=== PATIENT | female | born 2000 | race Two or more races ===

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

== ENCOUNTER 2023-01-11 12:27 | Emergency (ER) | payer OTHER ==
[~2023-01-11] VITALS: Ht 157.5 cm; Wt 90.7 kg
[~2023-01-11 12:27] MED LIST: IBUP-1955 PO
[2023-01-11] MEDS ORDERED: ACETAMINOPHEN 325 MG TABLET ONE (12:55)
[2023-01-11] MEDS ORDERED: IV NS 0.9% 1,000 ML BAG IV ONE (13:00)
[2023-01-11] MEDS ORDERED: dexaMETHasone SOD PHOSPHATE 10 MG/ML VIAL IM ONE (13:00)
[2023-01-11] MEDS ORDERED: ACETAMINOPHEN 325 MG TABLET PO ONE (13:00)
[2023-01-11] MEDS ORDERED: ACETAMINOPHEN ES 500 MG TABLET ONE (13:15)
[2023-01-11 13:42] LABS: BASOPHILS % (AUTO) 0.3 % (0.0-2.0); EOSINOPHILS % (AUTO) 0.1 % (0.0-6.0); HEMATOCRIT 41 % (33-45); HEMOGLOBIN 13.6 g/dL (11.5-14.8); LYMPHOCYTES # (AUTO) 4.4 K/uL (0.8-4.8); LYMPHOCYTES % (AUTO) 38.7 % (20.0-44.0); MEAN CORPUSCULAR HEMOGLOBIN 29 PG (26.0-33.0); MEAN CORPUSCULAR HGB CONC 33 g/dl (31.0-36.0); MEAN CORPUSCULAR VOLUME 88 fL (82-100); MONOCYTES # (AUTO) 1.1 K/uL (0.1-1.30); NEUTROPHILS # (AUTO) 5.8 K/uL (1.8-8.9); NEUTROPHILS % (AUTO) 50.9 % (43.0-81.0); PLATELET COUNT (AUTO) 253 K/uL (150-450); RED BLOOD CELL COUNT(AUTO) 4.66 MIL/uL (4.0-5.2); RED CELL DISTRIBUTION WIDTH 14.8 % (11.5-15.0); WHITE BLOOD COUNT (AUTO) 11.4 K/uL (4.3-11.0)
[2023-01-11 13:45] LABS: APPEARANCE,URINE TURBID (CLEAR); BILIRUBIN,URINE 2+ (NEGATIVE); BLOOD, URINE NEGATIVE Ery/uL (NEGATIVE); COLOR,URINE DARK YELLOW (YELLOW); KETONES,URINE 3+ mg/dL (NEGATIVE); LEUKOCYTE ESTERASE ,URINE NEGATIVE (NEGATIVE); NITRITE, URINE NEGATIVE (NEGATIVE); PH,URINE 5.5 (5.0-8.0); PROTEIN,URINE 2+ mg/dl (NEGATIVE); UGLUCOSE NEGATIVE (NEGATIVE)
[2023-01-11 13:46] LABS: ADD URINE CULTURE YES; BACTERIA,URINE Few /HPF (None Seen); PREGNANCY TEST URINE QUAL NEGATIVE (NEGATIVE); SQUAMOUS EPITHELIAL CELL,UR Rare /HPF (None Seen)
[2023-01-11 13:49] LABS: MONOTEST NEGATIVE (NEGATIVE)
[2023-01-11 13:59] LABS: ALBUMIN 3.9 g/dL (3.4-5.0); BILIRUBIN,DIRECT 0.3 mg/dL (0.0-0.2); BILIRUBIN,TOTAL 0.6 mg/dL (0.2-1.0); CALCIUM, SERUM 9.5 mg/dL (8.5-10.1); CREATININE 0.6 mg/dL (0.6-1.3); POTASSIUM 3.6 mmol/L (3.5-5.1); TOTAL PROTEIN, SERUM 9.7 g/dL (6.4-8.2)
[2023-01-11 14:01] LABS: LACTIC ACID 1.4 mmol/L (0.4-2.0)
[2023-01-11] MEDS ORDERED: TYL2T PO (15:10)
[2023-01-11] MEDS ORDERED: IBUP-1953 PO (15:10)
[2023-01-11] MEDS ORDERED: BENZ1LOZ58 PO (15:10)
[2023-01-11 15:23] VITALS: BP 131/68; TEMP 98.4; O2SAT 100
== END 2023-01-11 15:22 | disposition home or self-care (01) ==
LOC: ER 12:40
DX: J02.8 Acute pharyngitis due to other specified organisms (principal); Z20.822 Contact with and (suspected) exposure to COVID-19
CPT/HCPCS: 99283; 96360; 87426; 87804 ×2; 85025; 80048; 87086; 83605; 83690; 80076; 86308; 84703; 81001; 36415; 87880; 96372; J1100; J7030; C9803; 86403-TC